=== PATIENT | male | born 1990 | race Caucasian/White ===

== ENCOUNTER 2023-08-25 21:27 | Emergency (ER) | payer BC, OTHER ==
[~2023-08-25] VITALS: Ht 170.2 cm; Wt 68.0 kg
[2023-08-25 22:17] VITALS: TEMP 98.6
[2023-08-25] MEDS ORDERED: IBUPROFEN 600 MG TABLET ONE (22:31)
[2023-08-25] MEDS: IBUPROFEN 600 MG TABLET PO ONE (22:34)
[2023-08-25 23:37] VITALS: BP 124/77; O2SAT 100
== END 2023-08-25 23:38 | disposition home or self-care (01) ==
LOC: ER 21:30
DX: S90.811A Abrasion, right foot, initial encounter (principal); M25.552 Pain in left hip; Z60.2 Problems related to living alone; V03.90XA Pedestrian on foot injured in collision with car, pick-up truck or van, unspecified whether traffic or nontraffic accident, initial encounter; Y93.89 Activity, other specified; Y92.89 Other specified places as the place of occurrence of the external cause; Y99.8 Other external cause status
CPT/HCPCS: 72170-TC; 73630-TC